=== PATIENT | female | born 1970 | race Caucasian/White ===

== ENCOUNTER 2016-11-02 22:34 | Emergency (ER) | payer OTHER ==
[2016-11-03 00:42] VITALS: BP 150/84
== END 2016-11-03 00:42 | disposition home or self-care (01) ==
LOC: ED 22:34
DX: S83.8X1A Sprain of other specified parts of right knee, initial encounter (principal); S93.601A Unspecified sprain of right foot, initial encounter; I10 Essential (primary) hypertension; E66.9 Obesity, unspecified; J45.909 Unspecified asthma, uncomplicated; W17.89XA Other fall from one level to another, initial encounter; Y93.89 Activity, other specified; Y99.8 Other external cause status; Y92.89 Other specified places as the place of occurrence of the external cause